=== PATIENT | female | born 1935 | race Caucasian/White ===

== ENCOUNTER 2016-10-12 09:15 | Inpatient (IN) | payer MEDICARE, OTHER ==
[2016-10-12] VITALS (12 sets, daily range): BP systolic 98–139; BP diastolic 61–80
[~2016-10-12] VITALS: Ht 157.5 cm; Wt 69.4 kg
--- NOTE | 2016-10-12 09:20 | NUR ---
Pt taken down for CT without incident.. Vent transported on back up battery power and O2 from E-cylinder.. Told by Rubén MOMIN that FiO2 lowered to 75%.. SpO2 100%, will continue to monitor..
--- NOTE | 2016-10-12 09:20 | NUR ---
Per Dr Ceballos code sepsis does not need to be initiated.
[2016-10-12] MEDS ORDERED: ACET-2154 PO (09:29)
[2016-10-12] MEDS ORDERED: FOLI1TAB16 PO (09:29)
[2016-10-12] MEDS ORDERED: LOSA50TA21 PO (09:29)
[2016-10-12] MEDS ORDERED: CARV6.252 PO (09:29)
[2016-10-12] MEDS ORDERED: GABA-534 PO (09:29)
[2016-10-12] MEDS ORDERED: TRAM50TA2 PO (09:29)
[2016-10-12] MEDS ORDERED: PRAV40TA3 PO (09:29)
--- NOTE | 2016-10-12 09:30 | NUR ---
Blood specimens and blood cultures drawn by java lead architect.
--- NOTE | 2016-10-12 09:31 | NUR ---
CALLED X-RAY FOR A STAT X-RAY ORDERED BY MD DERAS, RADIOLOGY AWARE
[2016-10-12 09:54] LABS: BASOPHILS # (AUTO) 0.1 K/uL (0.0-8.0); BASOPHILS % (AUTO) 0.4 % (0.0-2.0); EOSINOPHILS # (AUTO) 0.2 K/uL (0.0-0.7); EOSINOPHILS % (AUTO) 1.4 % (0.0-7.0); HEMOGLOBIN 11.4 G/DL (12.0-16.0); LYMPHOCYTES # (AUTO) 3.6 K/UL (0.8-4.8); LYMPHOCYTES % (AUTO) 27.3 % (20.5-51.5); MEAN CORPUSCULAR HEMOGLOBIN 28.7 UUG (27.0-31.0); MEAN CORPUSCULAR HGB CONC 33 g/dL (32.0-37.0); MONOCYTES # (AUTO) 0.9 K/UL (0.1-1.30); MONOCYTES % (AUTO) 6.9 % (0.0-11.0); NEUTROPHILS # (AUTO) 8.2 K/UL (1.8-8.9); PLATELET COUNT (AUTO) 463 K/UL (150-450); RED BLOOD CELL COUNT(AUTO) 3.98 MIL/UL (4.2-5.4)
--- NOTE | 2016-10-12 09:55 | NUR ---
PT RECEIVED UNRESPONSIVE, SPO2 RANGING FROM 65-75%. INTUBATED WITH 7.5 ETT; APPROXIMATELY 23CM AT THE THE LIP. GOOD CHEST RISE, BILATERAL LUNG SOUNDS, CO2 DETECTOR USED AND SHOWN POSITIVE. PT PUT ON YARBROUGH VENT WITH AC 14, VT 600, 100% PER MD'S VERBAL ORDERS. LOW SPO2 RANGING FROM 80-84%. RECOMMENDED PEEP +5. SPO2 INCREASED TO 87-93%. SUCTIONED SMALL AMOUNT OF WHITE/PINK TINGED SECRETIONS. ABG WILL BE DONE IN 30 MIN. WILL CONTINUE TO MONITOR.
[2016-10-12] MEDS ORDERED: SUCCINYLCHOLINE CHLORIDE 200 MG/10 ML VIAL IV ONE (10:00)
[2016-10-12] MEDS ORDERED: ETOMIDATE 20 MG/10 ML VIAL IV ONE (10:00)
[2016-10-12 10:02] LABS: CARBON DIOXIDE 24 mmol/L (21-32); CHLORIDE 103 mmol/L (98-107); CREATININE 1.8 mg/dL (0.6-1.3); GLUCOSE 220 mg/dL (74-106); POTASSIUM 4.3 mmol/L (3.5-5.1); UREA NITROGEN, BLOOD 35 mg/dL (7-18)
[2016-10-12 10:06] LABS: BAND % (MANUAL) 2 % (0-10); EOSINOPHILS % (MANUAL) 3 % (0-8); LYMPHOCYTES % (MANUAL) 32 % (20-40); MONOCYTES % (MANUAL) 8 % (2-10); NEUTROPHILS % (MANUAL) 55 % (42-75)
[2016-10-12 10:08] LABS: ALANINE AMINOTRANSFERASE 43 U/L (14-59); ALKALINE PHOSPHATASE 66 U/L (50-136); ASPARTATE AMINOTRANSFERASE 59 U/L (15-37); BILIRUBIN,DIRECT 0.2 mg/dL (0.0-0.2); BILIRUBIN,TOTAL 0.8 mg/dL (0.2-1.0); TOTAL PROTEIN, SERUM 7.6 g/dL (6.4-8.2)
--- NOTE | 2016-10-12 10:25 | NUR ---
Lab reported lactic acid = 5.4, Dr Ceballos notified.
[2016-10-12 10:47] LABS: ABG BASE EXCESS -4.4 mmol/L; ABG PCO2 29.3 mmHg (35.0-45.0); ABG PO2 78.6 mmHg (75.0-100.0); ABG SITE RIGHT RADIAL; ABG TOTAL HEMOGLOBIN 10.4 G/dL (12.0-16.0); COHb 0.7 % (0.5-1.5); MetHb 0.1 % (0.0-1.5); O2Hb 94.3 % (94.0-97.0); VENT MODE VENT - A/C; VT, ABG 600 mL
[2016-10-12] MEDS ORDERED: ASPIRIN 300 MG RECTAL SUPP RC ONE (11:00)
--- NOTE | 2016-10-12 11:10 | NUR ---
PT TRANSFERRED FOR CAT SCAN WITH NO ISSUES DURING/AFTER THE TRANSPORT/PROCEDURE. AMBU BAG AT BEDSIDE. PT TRANSFERRED BACK TO ER ROOM 1B AT APPROXIMATELY 1135. NO DISTRESS NOTED.
[2016-10-12] MEDS ORDERED: ACETAMINOPHEN 325 MG SUPP ONE (11:15)
[2016-10-12 11:16] LABS: *BILIRUBIN,URIN NEGATIVE (NEGATIVE); *BLOOD, URINE Trace-lysed (NEGATIVE); *CLARITY,URINE CLEAR (CLEAR); *COLOR,URINE YELLOW (YELLOW); *KETONES,URINE NEGATIVE (NEGATIVE); *PROTEIN,URINE NEGATIVE (NEGATIVE); *UROBILINOGEN,URINE 0.2 E.U./dl (NORMAL); LEUKOCYTE ESTERASE ,URINE NEGATIVE (NEGATIVE); NITRITE, URINE NEGATIVE (NEGATIVE); PH,URINE 5.5 (5.0-8.0); UGLUCOSE NEGATIVE (NEGATIVE)
[2016-10-12 11:41] LABS: BACTERIA,URINE MANY /HPF (NONE SEEN); RBC,URINE 0-3 /HPF (0-3); SQUAMOUS EPITHELIAL CELL,UR FEW /HPF (NONE SEEN); WBC,URINE 0-3 /HPF (0-3)
[2016-10-12] MEDS ORDERED: IV NORMAL SALINE 1000 ML BAG IV ONE (12:00)
--- NOTE | 2016-10-12 12:00 | NUR ---
Patient property management form completed and signed by family. All of pt's belongings were given to family ( including clothes, jewlery and dentures ) and pt's family stated they will bring everything home.
[2016-10-12] MEDS ORDERED: ENOXAPARIN SODIUM 40 MG/0.4 ML DISP.SYRIN SQ ONE (12:30)
[2016-10-12] MEDS ORDERED: PANTOPRAZOLE SODIUM IV 40 MG in IV DEXTROSE 5% 100 ML IV ONE (12:30)
--- NOTE | 2016-10-12 12:36 | NUR ---
PT TRANSFERRED FROM ER TO CCU BED 3. NO COMPLICATIONS DURING TRANSPORT. NO RESPIRATORY DISTRESS OBSERVED. WILL CONTINUE TO MONITOR PT THROUGHOUT SHIFT.
[2016-10-12] MEDS ORDERED: ONDANSETRON 4 MG/2 ML VIAL IV PRN (13:00)
[2016-10-12] MEDS ORDERED: ACETAMINOPHEN 325 MG TABLET PO PRN (13:00)
[2016-10-12] MEDS ORDERED: Z GUARD REMEDY PASTE 57 GM TUBE TOP PRN (13:00)
[2016-10-12] MEDS ORDERED: MAGNESIUM HYDROXIDE 30 ML LIQUID UDC PO PRN (13:00)
--- NOTE | 2016-10-12 13:09 | NUR ---
PT BIBP OBTUNDED ON O2 VIA N/C. CPR HAD BEEN IN PROGRESS UPON THEIR ARRIVAL TO THE B+C FACILITY. PARAMEDICS OBSERVED THAT PT HAD SPONTANEOUS RESP SO CPR TERMINATED. UPON ARRIVAL THE O2 SAT WAS ABOUT 70%, PLACED ON NRM WITH O2 FLUSH. BAGGING NOT IMMEDIATELY INITIATED D/T CONCERN FOR POSSIBLE PNEUMOTHORAX FROM RECENT REPORTEDLY VIGOROUS COMPRESSIONS. ABG SHOWED HYPOXEMIA. LABS DRAWN. PT INTUBATED. URINARY CATHETER PLACED. PRIOR TO PLACING ASA SUPPOSITORY, A LARGE AMOUNT OF FORMED HARD BROWN STOOL WAS REMOVED FROM RECTUM. CXR ON ARRIVAL AND REPEATED POST INTUBATION. CT HEAD AND CHEST DONE. DTR PARISA AND SON-IN-LAW ARRIVED AND WERE UPDATED. PT TRANSFERED TO CCU BED 3 AFTER REPORT TO MERRILL MIRANDA. TOLERATED TRANSFER W/O PROBLEMS.
[2016-10-12] MEDS ORDERED: IV NS 1000 ML 1,000 ML IV ONE (16:45)
[2016-10-12] MEDS ORDERED: HEPARIN/D5W DRIP 500 ML IV PRN ×2 (16:45→22:15)
[2016-10-12] MEDS: GABAPENTIN 300 MG CAPSULE PO SCH (16:53)
[2016-10-12] MEDS: PANTOPRAZOLE SODIUM 40 MG VIAL IV SCH (16:53)
[2016-10-12] MEDS: CARVEDILOL 6.25 MG TABLET PO SCH (16:54)
--- NOTE | 2016-10-12 17:24 | NUR ---
BMP AND AMMONIA DRAWN TO FOLLOW UP WITH CREATININE LEVEL. PLAN IS TO DO CTA OF CHEST RULE OUT PE. CREATININE NEEDS TO BE LOWER.
[2016-10-12 17:36] LABS: CARBON DIOXIDE 24 mmol/L (21-32); CHLORIDE 108 mmol/L (98-107); CREATININE 1.5 mg/dL (0.6-1.3); GLUCOSE 126 mg/dL (74-106); POTASSIUM 4.2 mmol/L (3.5-5.1); UREA NITROGEN, BLOOD 41 mg/dL (7-18)
[2016-10-12] MEDS ORDERED: Medication Not On Formulary EA (Pravastatin Sodium 1 TAB) PO SCH (18:00)
[2016-10-12] MEDS ORDERED: IV NORMAL SALINE 250 ML IV ONE (18:11)
[2016-10-12] MEDS ORDERED: NORMAL SALINE FLUSH 10 ML DISP.SYRIN ONE (18:11)
[2016-10-12] MEDS ORDERED: IOHEXOL 350 100 ML INFUS..BTL ONE (18:11)
--- NOTE | 2016-10-12 18:14 | NUR ---
PLAN PATIENT TO GO TO CTA CHEST CONSENT OBTAIN. RULE OUT PE. DOCTOR KAMALJIT IN THE UNIT TO SEE PATIENT.
--- NOTE | 2016-10-12 18:25 | NUR ---
PT TRANSFERRED TO CT SCAN WITH NO ISSUES. BVM AT BEDSIDE. NO DISTRESS NOTED.
[2016-10-12] MEDS: IV NS 1000 ML 1,000 ML IV PRN (19:00)
--- NOTE | 2016-10-12 19:08 | NUR ---
Pt received laying in bed, semi-Sage's, unable to communicate.. Pt orally intubated, ETT 7.5, approx 21 cm at teeth.. ETT in place and secure with Moyers fast, readjusted for pt comfort, no discoloration/irritation/breakdown noted under/around anchor fast face pads/neck tie.. ETT moved to left side of mouth.. Oral care performed.. Continuous mechanical ventilation with vent: [place], settings: A/C 14, Vt 600, PEEP +5, FiO2 100%, tolerating well at this time, will continue to monitor.. Spoke with nurse regarding titration order, pt has been on 100% since intubation, will follow up.. BVM / back up trach at bedside.. Vent alarms checked and documented as received.. Vent alarms on / audible / functioning properly at this time.. No s/s of respiratory distress / S.O.B at this time, will continue to monitor..
[2016-10-12] MEDS ORDERED: HEPARIN SODIUM,PORCINE 5,000 UNITS/ML VIAL IV PRN (19:15)
[2016-10-12] MEDS ORDERED: HEPARIN SODIUM,PORCINE 5,000 UNITS/ML VIAL IV ONE (19:15)
[2016-10-12] MEDS ORDERED: ENOXAPARIN SODIUM 30 MG/0.3 ML DISP.SYRIN SUBCUT SCH (21:00)
[2016-10-12] MEDS ORDERED: ATORVASTATIN 10 MG TABLET PO SCH (21:00)
--- NOTE | 2016-10-12 21:30 | NUR ---
Patient in CT scan at present time. Jayla Yap N.P. Heparin stop. Prepare for TPA.
--- NOTE | 2016-10-12 22:15 | NUR ---
Notified Milad Yoon of CT head bleed noted. Cancel TPA. Resume Heparin gtt as previously ordered.
--- NOTE | 2016-10-12 22:25 | NUR ---
Uziel Fernandez daughter at bedside.
--- NOTE | 2016-10-12 22:25 | NUR ---
Alka at bedside.
[2016-10-13] VITALS (18 sets, daily range): BP systolic 90–135; BP diastolic 44–79
[2016-10-13] MEDS: IV NS 1000 ML 1,000 ML IV PRN (04:36)
[2016-10-13 06:03] LABS: BASOPHILS # (AUTO) 0.1 K/uL (0.0-8.0); BASOPHILS % (AUTO) 0.7 % (0.0-2.0); EOSINOPHILS % (AUTO) 0.3 % (0.0-7.0); HEMATOCRIT 30.8 % (37-47); HEMOGLOBIN 10.2 G/DL (12.0-16.0); LYMPHOCYTES # (AUTO) 1.7 K/UL (0.8-4.8); LYMPHOCYTES % (AUTO) 17.4 % (20.5-51.5); MEAN CORPUSCULAR HGB CONC 33 g/dL (32.0-37.0); MEAN CORPUSCULAR VOLUME 87.7 FL (81.0-99.0); MONOCYTES # (AUTO) 0.7 K/UL (0.1-1.30); MONOCYTES % (AUTO) 7.3 % (0.0-11.0); NEUTROPHILS # (AUTO) 7.4 K/UL (1.8-8.9); NEUTROPHILS % (AUTO) 74.3 % (38.5-71.5); PLATELET COUNT (AUTO) 147 K/UL (150-450); RED BLOOD CELL COUNT(AUTO) 3.52 MIL/UL (4.2-5.4); WHITE BLOOD COUNT (AUTO) 9.9 K/UL (4.0-11.2)
[2016-10-13 06:10] LABS: CARBON DIOXIDE 24 mmol/L (21-32); CHLORIDE 111 mmol/L (98-107); CHOLESTEROL 135 mg/dL (<200); CREATININE 1.3 mg/dL (0.6-1.3); GLUCOSE 119 mg/dL (74-106); HDL CHOLESTEROL 39 mg/dL (40-60); MAGNESIUM 1.9 mg/dL (1.8-2.4); PHOSPHOROUS 3.7 mg/dL (2.5-4.9); POTASSIUM 4.8 mmol/L (3.5-5.1); TRIGLYCERIDES 99 MG/DL (30-150); UREA NITROGEN, BLOOD 35 mg/dL (7-18)
[2016-10-13 06:31] LABS: THYROID STIMULATING HORMONE 0.971 mIU/mL (0.358-3.740)
--- NOTE | 2016-10-13 07:10 | NUR ---
PT RECEIVED ON YARBROUGH VENT WITH SETTINGS OF AC 14, 600, +5, 75% WITH 7.5 ETT, APPROXIMATELY 21CM AT THE LIP NINILCHIK. NO CHANGES MADE ON VENT AT THIS TIME. VENT CHECKED. ALARMS CHECKED, ARE ON AND AUDIBLE. NO S/S OF RESPIRATORY DISTRESS OBSERVED AT THIS TIME. SUCTIONED SMALL AMOUNT OF THIN, PINK/PALE SECRETIONS. ETT MOVED TO RIGHT SIDE OF MOUTH. AMBU BAG IS AT BEDSIDE. ABG ORDERED FOR 0800. WILL MONITOR ACCORDINGLY.
[2016-10-13] MEDS ORDERED: HEPARIN/D5W DRIP 500 ML IV PRN (07:30)
--- NOTE | 2016-10-13 07:30 | NUR ---
YOMI RAMÍREZ AT BEDSIDE TO EVALUATE PATIENT. DOCTOR SPOKE EXTENSIVELY TO FAMILY OVERNIGHT WITH POSSIBLE TERMINAL EXTUBATION. FOR NOW PLAN FOR REPEAT CT OF HEAD AT NOON AND CONTINUE WITH HEPARIN DRIP.
[2016-10-13] MEDS: GABAPENTIN 300 MG CAPSULE PO SCH (08:22)
[2016-10-13] MEDS: CARVEDILOL 6.25 MG TABLET PO SCH (08:22)
[2016-10-13] MEDS: PANTOPRAZOLE SODIUM 40 MG VIAL IV SCH (08:22)
[2016-10-13 08:50] LABS: ABG BASE EXCESS -2.5 mmol/L; ABG HCO3 19.8 mmol/L; ABG PCO2 25.7 mmHg (35.0-45.0); ABG PH 7.504 (7.350-7.450); ABG PO2 267.5 mmHg (75.0-100.0); ABG SITE LEFT BRACHIAL; ABG TOTAL HEMOGLOBIN 9.4 G/dL (12.0-16.0); COHb 0.5 % (0.5-1.5); MetHb 0.5 % (0.0-1.5); O2Hb 98.5 % (94.0-97.0); VENT MODE VENT - A/C; VT, ABG 600 mL
[2016-10-13] MEDS ORDERED: LOSARTAN POTASSIUM 50 MG TABLET PO SCH (09:00)
[2016-10-13] MEDS ORDERED: ASPIRIN 81 MG TAB.CHEW PO SCH (09:00)
[2016-10-13] MEDS ORDERED: FOLIC ACID 1 MG TABLET PO SCH (09:00)
--- NOTE | 2016-10-13 09:03 | NUR ---
FIO2 TITRATED DOWN PER RT CATRACHITA D/T ABG RESULTS. FIO2 DECREASED TO 65%.
[2016-10-13] MEDS ORDERED: IV 1/2NS 1000 ML 1,000 ML IV PRN (09:15)
--- NOTE | 2016-10-13 11:18 | NUR ---
doctor geremias in unit. vent changes ordered. informed RT of new orders
--- NOTE | 2016-10-13 11:22 | NUR ---
PT VENT PARAMETERS CHANGED PER MD'S ORDERS. NEW VENTILATOR SETTINGS ARE AC 16, VT 500, +5 PEEP, FIO2 30%. WILL CONTINUE TO MONITOR PT.
--- NOTE | 2016-10-13 13:01 | NUR ---
patient brought back from repeat ct of the head. tolerated well the transfer to procedure.
--- NOTE | 2016-10-13 14:48 | NUR ---
YOMI RAMÍREZ SPOKE TO FAMILY REGARDING PROGNOSIS IN A FAMILY CONFERENCE. PATIENT CODE STATUS WILL BE CHANGED TO DNR AND POSSIBLE TERMINAL EXTUBATION IS STILL BEING DISCUSSED AMONGST FAMILY.
--- NOTE | 2016-10-13 15:45 | NUR ---
FAMILY DECIDED COMFORT MEASURES. INFORMED SECURITY CONTROL ROOM OFFICER YOMI RAMÍREZ FOR FURTHER ORDERS.
[2016-10-13] MEDS ORDERED: DC PROPOFOL ONCE EXTUBATED XX PRN (16:00)
[2016-10-13] MEDS ORDERED: MORPHINE SULFATE PF IV DRIP 250 MG in IV DEXTROSE 5% 240 ML IV PRN (16:15)
--- NOTE | 2016-10-13 16:26 | NUR ---
CALLED [facility] FOR PATIENT THAT WILL BE TERMINALLY EXTUBATED. SPOKE TO ASTON FROM [facility]. PATIENT IS RULED OUT FOR ALL DONATION DUE TO AGE CASE NUMBER GIVEN #[id number] NEED TO CALL BACK ONCE PATIENT NO LONGER HAS A HEART BEAT TO CLOSE CASE.
--- NOTE | 2016-10-13 17:40 | NUR ---
PATIENT EXTUBATED, MORPHINE DRIP ONGOING PATIENT IS NO DISTRESS OR DISCOMFORT
--- NOTE | 2016-10-13 18:19 | NUR ---
PATIENT BEING TRANSFERRED TO [facility]. SBAR GIVEN TO
--- NOTE | 2016-10-13 19:20 | NUR ---
PATIENT EYES CLOSED, BUT RESPOND TO PAIN AND TACTILE STIMULI, PATIENT ON MORPHINE DRIP FOR PAIN MANAGEMENT, NO FACIAL GRIMACY NOTED AT THIS TIME, KEPT COMFORTABLE, ORAL CARE PROVIDED, TURN AND REPOSITION, KEPT CLEAN AND DRY.
--- NOTE | 2016-10-14 | NUR ---
ASSESSED PATIENT FOR PAIN AND NOTED WITH FACIAL GRIMACY, INCREASED THE MORPHINE TO 8MG PER HOUR, PATIENT RESPIRATION IS 4 BREATHS PER MINUTES, NO S/S OF PAIN NOTED, IV SITE WAS CHANGED DUE TO SOILAGE, KEPT COMFORTABLE.
--- NOTE | 2016-10-14 01:41 | NUR ---
ASSESSED PAIN AND NOTED WITH EPISODES OF MOANING, INCREASE MORPHINE TO 10MG/HR FOR PAIN AND COMFORT, ORAL CARE PROVIDED, KEPT CLEAN DRY AND COMFORTABLE. CONT TO MONITOR.
--- NOTE | 2016-10-14 03:48 | NUR ---
ASSESSED PATIENT AND NOTED WITH MOANING AND FACIAL GRIMACY, INCREASE MORPHINE TO 12MG/HR FOR COMFORT AND PAIN. ORAL CARE PROVIDED, KEPT CLEAN AND DRY, KEPT COMFORTABLE.
--- NOTE | 2016-10-14 04:00 | NUR ---
ASSESSED PATIENT NOTED WITH DEEP SHALLOW BREATHING, BUT NO FACIAL GRIMACY NOTED, CONT ON MORPHINE DRIP. KEPT COMFORTABLE.
--- NOTE | 2016-10-14 06:15 | NUR ---
CHECKED PATIENT FOR ANY CONDITION CHANGE. RESPIRATION 3 BREATHS PER MINUTE, SKIN COLOR PALE, COLD TO TOUCH, DIFFICULTY LOCATING PULSE (APICAL OR POPLITEAL) , CONTINUE TO MONITOR. APPEARS COMFORTABLE.
--- NOTE | 2016-10-14 06:30 | NUR ---
SEE RECORD OF INTERVENTION. FAMILY, MD AND APPROPRIATE PERSONNEL NOTIFIED. POST YUNIEL CARE PROVIDED.
--- NOTE | 2016-10-14 08:30 | NUR ---
TRANSPORTED TO [facility] [place]
[2016-10-14] MEDS ORDERED: PANTOPRAZOLE ORAL SUSPENSION 40 MG SUSPDR.PKT GT SCH (09:00)
== END 2016-10-14 06:30 | disposition expired | DRG 208 ==
LOC: ER 09:19 → CCU 12:13 → MED 10-13 18:20
PROVIDERS: ADMIT Contractor; ATTEND Contractor
PROC: 5A1945Z Respiratory Ventilation, 24-96 Consecutive Hours (ICD-10-PCS; principal; 2016-10-12)
PROC: 0BH17EZ Insertion of Endotracheal Airway into Trachea, Via Natural or Artificial Opening (ICD-10-PCS; 2016-10-12)
DX: I26.92 Saddle embolus of pulmonary artery without acute cor pulmonale (principal); I21.4 Non-ST elevation (NSTEMI) myocardial infarction; J96.01 Acute respiratory failure with hypoxia; G93.40 Encephalopathy, unspecified; N17.0 Acute kidney failure with tubular necrosis; I63.512 Cerebral infarction due to unspecified occlusion or stenosis of left middle cerebral artery; E87.2 Acidosis; E44.0 Moderate protein-calorie malnutrition; I62.9 Nontraumatic intracranial hemorrhage, unspecified; Z66 Do not resuscitate; Z51.5 Encounter for palliative care; G40.409 Other generalized epilepsy and epileptic syndromes, not intractable, without status epilepticus; I10 Essential (primary) hypertension; E78.5 Hyperlipidemia, unspecified; Z88.0 Allergy status to penicillin; G62.9 Polyneuropathy, unspecified; G25.81 Restless legs syndrome; D63.8 Anemia in other chronic diseases classified elsewhere
CPT/HCPCS: 36415; 36600; 51702; 70030-TC; 70450; 71010; 71250; 71275; 74000; 83605; 83735; 84100; 84443; 85025; 85730; 87040; 87070; 87086; 93005; 93307; 94002; 94003; 94640; A4663; C9113; J0330; J1644; J2274; J3490; J7030; J7050; J7060; Q9967